=== PATIENT | female | born 1990 | race Caucasian/White ===

== ENCOUNTER → 2016-12-07 | Outpatient (CLI) | payer BC | LOC: FIMAGING 09:25 | PROVIDERS: ATTEND Physician Assistant | DX: R10.30 Lower abdominal pain, unspecified (principal); R11.10 Vomiting, unspecified; R19.7 Diarrhea, unspecified ==

== ENCOUNTER → 2017-01-03 | Outpatient (CLI) | payer BC | LOC: BMCIMAGING 17:19 | PROVIDERS: ATTEND Allergy & Immunology Allergy | DX: R05 Cough (principal) ==